=== PATIENT | male | born 1990 | race Caucasian/White ===

== ENCOUNTER 2017-12-03 21:24 | Emergency (ER) | payer MEDICAID ==
[~2017-12-03] VITALS: Ht 180.3 cm; Wt 126.1 kg
[2017-12-03 21:37] VITALS: BP 156/85
[2017-12-04] MEDS ORDERED: ALBUTEROL SULF 2.5 MG/0.5ML(0.5%) NEB SOLN NEB ONE (00:30)
[2017-12-04] MEDS ORDERED: IPRATROPIUM BROM 0.5 MG/2.5ML INH SOL NEB ONE (00:30)
== END 2017-12-04 01:42 | disposition home or self-care (01) ==
LOC: ER 21:24
DX: J06.9 Acute upper respiratory infection, unspecified (principal)
CPT/HCPCS: 71045; 94640; 99283; J7611; J7644

== ENCOUNTER 2018-05-15 09:04 | Emergency (ER) | payer MEDICAID ==
[~2018-05-15] VITALS: Ht 180.3 cm; Wt 127.0 kg
[2018-05-15 09:22] VITALS: BP 133/74
== END 2018-05-15 10:55 | disposition home or self-care (01) ==
LOC: ER 09:04
DX: R20.0 Anesthesia of skin (principal)
CPT/HCPCS: 73130